=== PATIENT | female | born 2000 | race African-American/Black ===

== ENCOUNTER 2019-12-05 13:08 | Emergency (ER) | payer MEDICAID ==
[~2019-12-05] VITALS: Ht 167.6 cm; Wt 64.0 kg
[2019-12-05] MEDS ORDERED: ACETAMINOPHEN 500MG TABLET PO ONE (14:45)
[2019-12-05] MEDS ORDERED: IBUPROFEN 600MG TABLET PO ONE (14:45)
[2019-12-05 15:23] VITALS: BP 114/68
== END 2019-12-05 15:27 | disposition home or self-care (01) ==
LOC: ER 13:08
DX: H10.31 Unspecified acute conjunctivitis, right eye (principal)
CPT/HCPCS: 99283

== ENCOUNTER 2020-08-13 22:01 | Emergency (ER) | payer MEDICAID ==
[~2020-08-13] VITALS: Ht 165.1 cm; Wt 75.0 kg
[2020-08-13 22:30] VITALS: BP 145/82
[2020-08-13 23:42] LABS: CLARITY URINE CLEAR (CLEAR); COLOR URINE YELLOW (YELLOW); KETONES URINE TRACE (NEGATIVE); LEUKOCYTE ESTERASE URINE NEGATIVE (NEGATIVE); NITRITE URINE NEGATIVE (NEGATIVE); OCCULT BLOOD URINE NEGATIVE (NEGATIVE); PH URINE 5.5 (4.5-8.0); PROTEIN URINE NEGATIVE (NEGATIVE); SPECIFIC GRAVITY URINE 1.033 (1.005-1.030)
[2020-08-21] MEDS ORDERED: CEPH500C2 PO (23:33)
[2020-08-21] MEDS ORDERED: CLOT21CR VG (23:33)
[2020-08-21] MEDS ORDERED: VALA500T55 PO (23:33)
== END 2020-08-13 23:29 | disposition left against medical advice (07) ==
LOC: ER 22:01
DX: Z53.21 Procedure and treatment not carried out due to patient leaving prior to being seen by health care provider (principal)
CPT/HCPCS: 81003

== ENCOUNTER 2020-08-17 22:33 | Emergency (ER) | payer MEDICAID ==
[~2020-08-17] VITALS: Ht 167.6 cm; Wt 73.0 kg
[2020-08-17 22:45] VITALS: BP 119/67
[2020-08-17] MEDS ORDERED: LIDOCAINE HCL 1% 20ML VIAL (Pyxis) INJ INFIL ONE (23:45)
[2020-08-17] MEDS ORDERED: CEFTRIAXONE SODIUM 500 MG/VIAL IM ONE (23:45)
[2020-08-17] MEDS ORDERED: AZITHROMYCIN 500 MG TABLET PO ONE (23:45)
[2020-08-17 23:46] LABS: CLARITY URINE CLEAR (CLEAR); COLOR URINE YELLOW (YELLOW); KETONES URINE TRACE (NEGATIVE); LEUKOCYTE ESTERASE URINE TRACE (NEGATIVE); NITRITE URINE NEGATIVE (NEGATIVE); OCCULT BLOOD URINE NEGATIVE (NEGATIVE); PROTEIN URINE NEGATIVE (NEGATIVE); SPECIFIC GRAVITY URINE 1.024 (1.005-1.030); UROBILINOGEN URINE 0.2 E.U./dL (0.2-1.0)
[2020-08-18] MEDS ORDERED: VALA500T55 PO ×2 (00:34)
[2020-08-18] MEDS ORDERED: CLOT21CR4 VG (00:34)
[2020-08-18] MEDS ORDERED: CEPH500T MT (00:48)
[2020-08-18] MEDS ORDERED: VALA500T55 MT (00:56)
[2020-08-21 13:06] LABS: NEISSERIA GONORRHOEAE NAA Negative (Negative)
[2020-08-21] MEDS ORDERED: CEPH500C2 PO (23:33)
[2020-08-21] MEDS ORDERED: VALA500T55 PO (23:33)
[2020-08-21] MEDS ORDERED: CLOT21CR VG (23:33)
== END 2020-08-18 01:13 | disposition home or self-care (01) ==
LOC: ER 22:33
DX: N76.0 Acute vaginitis (principal)
CPT/HCPCS: 81003; 81025; 87210; 87491; 87591; 96372; 99283; J0696; J3490

== ENCOUNTER 2020-09-21 10:39 | Emergency (ER) | payer MEDICAID ==
[~2020-09-21] VITALS: Ht 165.1 cm; Wt 73.0 kg
[~2020-09-21 10:39] MED LIST: CEPH500C2 PO; CEPH500T MT; CLOT21CR VG; CLOT21CR4 VG; VALA500T55 MT; VALA500T55 PO
[2020-09-21 11:14] VITALS: BP 121/93
[2020-09-21 11:49] LABS: CLARITY URINE CLOUDY (CLEAR); COLOR URINE DARK YELLOW (YELLOW); KETONES URINE NEGATIVE (NEGATIVE); LEUKOCYTE ESTERASE URINE 2+ (NEGATIVE); NITRITE URINE POSITIVE (NEGATIVE); OCCULT BLOOD URINE 2+ (NEGATIVE); PH URINE 7.5 (4.5-8.0); PROTEIN URINE 2+ (NEGATIVE); SPECIFIC GRAVITY URINE 1.021 (1.005-1.030); UROBILINOGEN URINE 0.2 E.U./dL (0.2-1.0)
[2020-09-21] MEDS ORDERED: IBUP-2029 MT (12:30)
[2020-09-21] MEDS ORDERED: PHEN-815 MT (12:30)
[2020-09-21] MEDS ORDERED: NITR100C MT (12:30)
== END 2020-09-21 12:46 | disposition home or self-care (01) ==
LOC: ER 10:47
DX: N39.0 Urinary tract infection, site not specified (principal); Z90.49 Acquired absence of other specified parts of digestive tract; Z79.899 Other long term (current) drug therapy
CPT/HCPCS: 81003; 81025; 87077; 87186; 99283